=== PATIENT | female | born 1970 | race Caucasian/White ===

== ENCOUNTER → 2018-09-21 | Outpatient (CLI) | payer OTHER ==
--- NOTE | 2018-09-21 09:13 | Diagnostic Imaging Report ---
INDICATION: Palpable lump in the right breast. COMPARISON: 08/17/2016 and 11/21/2014. TECHNIQUE: 2D and 3D bilateral diagnostic mammography was performed with CAD. FINDINGS: Scattered fibroglandular densities are identified bilaterally. There is an area of increased density in the upper outer right breast at posterior depth. This is similar to perhaps slightly more prominent when compared to the prior mammograms. There are multiple circumscribed nodules in the upper outer right breast as well, consistent with intramammary lymph nodes. No suspicious calcifications are seen. There are benign calcifications. The axillae are unremarkable. IMPRESSION: Asymmetric density in the upper outer right breast, similar to perhaps slightly more increased when compared with the prior study. Further evaluation with ultrasound is recommended. ACR BI-RADS Category 0: Incomplete. (Needs additional imaging evaluation). Result letter will be mailed to the patient. Note: At least 10% of breast cancer is not imaged by mammography. Dictated by: Dictated on workstation # [id number]
--- NOTE | 2018-09-21 11:58 | Diagnostic Imaging Report ---
INDICATION: Palpable lump in the upper outer right breast. COMPARISON: Correlation is made with the diagnostic mammogram from earlier this same day. FINDINGS: Sonographic interrogation of the upper outer right breast was performed. There are two lymph nodes identified at the 10 o'clock location of the right breast 11 cm from the nipple. The largest measures approximately 7 mm in size. There are also two cysts present in the upper-outer right breast measuring approximately 7 mm and 5 mm. No other suspicious abnormality is seen. No abnormality is identified at the area of asymmetric density noted mammographically. IMPRESSION: Benign-appearing lymph nodes and simple cysts in the upper outer right breast. No concerning sonographic abnormality is seen. The patient may return to routine annual screening mammography. Continued close clinical and self breast exams are recommended to confirm stability of the area of palpable abnormality. ACR BI-RADS Category 2: Benign findings. Dictated by: Dictated on workstation # [id number]
== END ==
LOC: RAD 08:13
PROVIDERS: ATTEND Registered Nurse
DX: N60.01 Solitary cyst of right breast (principal); N63.11 Unspecified lump in the right breast, upper outer quadrant
CPT/HCPCS: 77066

== ENCOUNTER → 2018-10-31 | Outpatient (CLI) | payer OTHER ==
--- NOTE | 2018-10-31 16:33 | Diagnostic Imaging Report ---
PROCEDURE: CT abdomen and pelvis without contrast. TECHNIQUE: Multiple contiguous axial images were obtained through the abdomen and pelvis without the use of intravenous contrast. Auto Exposure Controls were utilized during the CT exam to meet ALARA standards for radiation dose reduction. INDICATION: Right abdominal pain. FINDINGS: Unenhanced images of the liver and spleen reveal no focal abnormality. Gallbladder is surgically absent. No pancreatic, adrenal gland or renal abnormality is seen. The appendix has a normal appearance. Note is made of an approximately 1.8 cm rounded hyperdense focus within the uterine fundus. There is also an approximately 1.8 cm cyst in the left ovary. No definite urinary tract calculus is identified. There is mild lumbar spondylosis with grade 1 anterolisthesis of L4 on L5. IMPRESSION: 1.8 cm hyperdense nodule in the region of fundal endometrial canal. This could represent hematoma, polyp or fibroid although ultrasonography would be useful for further characterization of this finding as well as probable 1.8 cm left ovarian cyst. Dictated by: Dictated on workstation # [id number]
== END ==
LOC: RAD 15:41
PROVIDERS: ATTEND Nurse Practitioner Family
DX: N85.8 Other specified noninflammatory disorders of uterus (principal); R10.9 Unspecified abdominal pain; Z90.49 Acquired absence of other specified parts of digestive tract
CPT/HCPCS: 74176

== ENCOUNTER → 2019-10-05 | Outpatient (REF) ==
--- NOTE | 2019-10-05 11:36 | Diagnostic Imaging Report ---
Left elbow at 11:55. Indication: Elbow pain. 3 views were obtained. There are no prior studies available for comparison. There is a linear lucency extending through the tip of the medial epicondyle of the distal humerus. There may be a similar-appearing linear lucency extending through the tip of the lateral epicondyle of the distal humerus. These linear lucencies do not have the appearance of an acute fracture and could be long-standing in nature. Previous studies are available. They would be helpful for comparison. No other fracture or acute abnormality is identified. The elbow joint is fairly well-maintained. The posterior fat-pad is not elevated and the soft tissues are unremarkable. Impression: 1. The linear lucencies extending longitudinally through the medial and lateral epicondyles may be a sequela of prior trauma as opposed to an acute injury. Clinical followup is recommended. 2. There is no acute bony abnormality noted otherwise. 3. If further imaging is desired, then MRI would be recommended. Dictated by: Dictated on workstation # [id number]
== END | disposition home or self-care (01) ==
LOC: OCC 10:37
PROVIDERS: ATTEND Family Medicine
CPT/HCPCS: 73080

== ENCOUNTER → 2020-04-03 | Outpatient (CLI) | payer OTHER | LOC: RAD 15:00 | PROVIDERS: ATTEND Obstetrics & Gynecology | DX: Z12.31 Encounter for screening mammogram for malignant neoplasm of breast (principal); Z53.9 Procedure and treatment not carried out, unspecified reason ==

== ENCOUNTER → 2021-03-05 | Outpatient (CLI) | payer OTHER ==
--- NOTE | 2021-03-05 16:00 | Diagnostic Imaging Report ---
PROCEDURE: Pelvic comp/transvaginal sonogram. TECHNIQUE: Complete transabdominal and transvaginal pelvic ultrasound was performed. In addition, limited pelvic Doppler was performed. INDICATION: Abdominal pain. Uterus is anteverted measuring 8.4 x 3.9 x 6.7 cm. There is an area area of heterogeneity in the anterior mid uterus measuring approximately 1.2 x 1.9 cm which may represent a fibroid. No other masses are seen. Endometrium is 4 mm in thickness. The ovaries were not visualized. No adnexal mass or free fluid is detected. IMPRESSION: Probable uterine fibroid. The study is otherwise unremarkable. Dictated by: Dictated on workstation # [id number]
== END ==
LOC: RAD 13:45
PROVIDERS: ATTEND Obstetrics & Gynecology
DX: R10.9 Unspecified abdominal pain (principal)
CPT/HCPCS: 76830; 76856

== ENCOUNTER 2021-04-08 05:35 | Outpatient (RCR) | payer BC, OTHER ==
[~2021-04-08] VITALS: Ht 162.6 cm; Wt 245.8 kg
[2021-04-10] MEDS ORDERED: CETI10TA17 PO (10:44)
[2021-04-10] MEDS ORDERED: GING250C PO (10:44)
[2021-04-10] MEDS ORDERED: CHOL100048 PO (10:44)
[2021-04-10] MEDS ORDERED: MULT-1060 PO (10:44)
[2021-04-10] MEDS ORDERED: GLUC100016 PO (10:44)
[2021-04-10] MEDS ORDERED: PANT40TA52 PO (10:47)
[2021-04-10] MEDS ORDERED: MELA1TAB15 PO (10:47)
[2021-04-10] MEDS ORDERED: VENL100T2 PO (10:47)
[2021-04-10] MEDS ORDERED: POTA99TA21 PO (10:47)
[2021-04-10] MEDS ORDERED: HYDR25TA4 PO (10:47)
== END 2021-04-10 12:45 | disposition home or self-care (01) ==
LOC: PREOP 05:35 → EDSTATUS 11:00 → PREOP 04-10 12:45
PROVIDERS: ATTEND Surgery
DX: Z01.818 Encounter for other preprocedural examination (principal)

== ENCOUNTER 2021-04-15 09:44 | Day surgery (SDC) | payer BC, OTHER ==
[~2021-04-15] VITALS: Ht 162.6 cm; Wt 111.5 kg
[2021-04-15 09:05] VITALS: BP 137/98
[~2021-04-15 09:44] MED LIST: CETI10TA17 PO; CHOL100048 PO; GING250C PO; GLUC100016 PO; HYDR25TA4 PO; MELA1TAB15 PO; MULT-1060 PO; PANT40TA52 PO; POTA99TA21 PO; VENL100T2 PO
[2021-04-15] MEDS ORDERED: LACTATED RINGERS 1,000 ML IV ONE (09:57)
[2021-04-15] MEDS ORDERED: LACTATED RINGERS 1,000 ML IV STA (10:02)
[2021-04-15] MEDS ORDERED: HURRICAINE EXT TUBE (BENZOCAINE) XX PRN (10:15)
--- NOTE | 2021-04-15 10:15 | Progress Note-Pre Operative ---
Pre-Operative Progress Note H&P Reviewed The H&P was reviewed, patient examined and no changes noted. Date Seen by Provider: Apr 15, 2021 Time Seen by Provider: 10:10 Date H&P Reviewed: Apr 15, 2021 Time H&P Reviewed: 10:10 Pre-Operative Diagnosis: lower abd pain, melena, change in bowel habits HAIM ALVARADO DO Apr 15, 2021 10:15
[2021-04-15] MEDS ORDERED: PROPOFOL INJECTION 50 ML IV ONE ×2 (14:18→14:51)
--- NOTE | 2021-04-15 15:03 | Progress Note-Post Operative ---
Post-Operative Progess Note Surgeon (s)/Boring And Filling Machine Operator (s) Surgeon HAIM ALVARADO DO Boring And Filling Machine Operator: NA Pre-Operative Diagnosis lower abd pain, melena, change in bowel habits Post-Operative Diagnosis Hiatal hernia, gastric polyps, colon polyps Procedure & Operative Findings Date of Procedure 04/15/21 Procedure Performed/Findings EGD with biopsies at the GE junction and antrum, colonoscopy with hot bx polypectomy x 2 Anesthesia Type per profile mill operator tape control Estimated Blood Loss Estimated blood loss (mL): none Specimens/Packing Specimens Removed antrum, ge, esophagus, colon polyps HAIM ALVARADO DO Apr 15, 2021 15:03
[2021-04-15 15:05] VITALS: BP 134/66
--- NOTE | 2021-04-15 15:05 | Anesthesia-General Post-Op ---
MAC Patient Condition Mental Status/LOC: Same as Preop Cardiovascular: Satisfactory Nausea/Vomiting: Absent Respiratory: Satisfactory Pain: Controlled Complications: Absent Post Op Complications Complications None Follow Up Care/Instructions Patient Instructions None needed. Anesthesiology Discharge Order Discharge Order Patient is doing well, no complaints, stable vital signs, no apparent adverse anesthesia problems. No complications reported per nursing. MARCO ANTONIO SHAFFER CRNA Apr 15, 2021 15:05
--- NOTE | 2021-04-15 15:05 | Discharge Inst-Simple/Standard ---
Discharge Inst-Standard Patient Instructions/Follow Up Plan of Care/Instructions/FU: 2 weeks Owen Activity as Tolerated: Yes Discharge Diet: Regular Diet (high fiber) HAIM ALVARADO DO Apr 15, 2021 15:05
[2021-04-15 15:10] VITALS: BP 134/66
[2021-04-15 15:30] VITALS: BP 136/76
[2021-04-15 15:50] VITALS: BP 136/76
--- NOTE | 2021-04-15 20:04 | OPERATIVE REPORT ---
DATE OF SERVICE: 04/15/2021 PREOPERATIVE DIAGNOSES: Lower abdominal pain, melena, and change in bowel habits. POSTOPERATIVE DIAGNOSES: Hiatal hernia, gastric polyps, and colon polyps. PROCEDURES PERFORMED: EGD with biopsy of the gastroesophageal junction, esophagus and antrum and colonoscopy with hot biopsy polypectomy x2. SURGEON: Haim Weaver DO. ANESTHESIA: Per OPERATING ROOM SPECIALIST. ESTIMATED BLOOD LOSS: None. COMPLICATIONS: None. INDICATIONS FOR PROCEDURE: The patient is a 51-year-old female needing colonoscopy and EGD for lower abdominal pain, melena, and change in bowel habits. She understands the risks and benefits of the procedure and wished to proceed with the procedure. Consent was signed in the chart. DESCRIPTION OF PROCEDURE: The patient was taken to the endoscopy suite and placed in a left lateral recumbent position. Timeout was performed. Scope was inserted in the mouth, down the esophagus, stomach and into the duodenum without difficulty. No polyps, masses or ulcerations within the duodenum. Scope was slowly retracted back into the stomach, where it was further insufflated. Some benign-appearing gastric polyps. Biopsy of the antrum was obtained. Scope was retroflexed noting a hiatal hernia and no other pathology. Scope was returned to its normal position. Biopsy of the antrum was obtained. Scope was slowly retracted back to the GE junction with some slight erythematous changes. Biopsy of the GE junction was obtained. No polyps, masses or ulcerations. Scope was slowly retracted back to the middle of the esophagus, where another biopsy was obtained just due to slight erythematous changes as well. Scope was then slowly retracted until completely removed. Digital rectal exam was performed. There were no palpable polyps, masses or ulcerations. Scope was inserted in the rectum and advanced all the way to cecum with minimal difficulty. Prep was adequate. Scope was then slowly retracted back. There were no polyps, masses or ulcerations within the cecum, ascending, transverse, and descending colon. In the sigmoid colon, a small polyp was present, which hot biopsy polypectomy was performed. Scope was then continuously retracted back into the rectum, where another small polyp was present, which hot biopsy polypectomy was performed. Scope was retroflexed noting no other pathology. Scope was returned to its normal position, slowly withdrawn until completely removed. The patient tolerated the procedure well without any complications. She was taken to the recovery room in stable condition. RECOMMENDATIONS: The patient to continue on current medications. Await biopsy results. The patient to increase fiber intake, which I think this will help with some of her change in bowel habits. The patient will follow up in a couple of weeks to see how she is doing at that time. The patient will have a repeat colonoscopy in five years. Job ID: [id number] DocumentID: [id number] Dictated Date: 04/15/2021 15:08:33 It Infrastructure Consultant Date: 04/15/2021 20:04:21 Dictated By: HAIM WEAVER DO
== END 2021-04-15 15:50 | disposition home or self-care (01) ==
LOC: ENDO 09:44
PROVIDERS: ATTEND Surgery
DX: D12.5 Benign neoplasm of sigmoid colon (principal); K62.1 Rectal polyp; K31.7 Polyp of stomach and duodenum; K44.9 Diaphragmatic hernia without obstruction or gangrene; I10 Essential (primary) hypertension; E66.01 Morbid (severe) obesity due to excess calories; K21.9 Gastro-esophageal reflux disease without esophagitis; G47.33 Obstructive sleep apnea (adult) (pediatric); Z99.89 Dependence on other enabling machines and devices; Z68.41 Body mass index [BMI] 40.0-44.9, adult; Z79.899 Other long term (current) drug therapy; Z90.49 Acquired absence of other specified parts of digestive tract
CPT/HCPCS: 84703; 88305

== ENCOUNTER → 2021-05-21 | Outpatient (CLI) | payer BC ==
[~2021-05-21] MED LIST changes: -POTA99TA21 PO; +POTA99TA26 PO
--- NOTE | 2021-05-21 11:34 | Diagnostic Imaging Report ---
INDICATION: Routine screening. COMPARISON: 09/21/2018 and 08/17/2016. TECHNIQUE: 2D and 3D bilateral screening mammography was performed with CAD. FINDINGS: Scattered fibroglandular densities are identified bilaterally. Benign-appearing nodules in the outer right breast appear stable. No new mass or malignant-appearing microcalcifications are seen. The axillae are unremarkable. IMPRESSION: No mammographic features suspicious for malignancy are identified. ACR BI-RADS Category 2: Benign findings. Result letter will be mailed to the patient. Note: At least 10% of breast cancer is not imaged by mammography. Dictated by: Dictated on workstation # [id number]
== END ==
LOC: RAD 10:45
PROVIDERS: ATTEND Obstetrics & Gynecology
DX: Z12.31 Encounter for screening mammogram for malignant neoplasm of breast (principal)
CPT/HCPCS: 77063; 77067

== ENCOUNTER 2021-05-27 05:42 | Outpatient (CLI) | payer BC ==
[~2021-05-27] VITALS: Ht 162.6 cm; Wt 111.4 kg
== END 2021-05-27 11:40 | disposition home or self-care (01) ==
LOC: PREOP 05:42
PROVIDERS: ATTEND Obstetrics & Gynecology
DX: Z01.818 Encounter for other preprocedural examination (principal)

== ENCOUNTER 2021-06-10 06:01 | Day surgery (SDC) | payer BC, OTHER ==
[2021-06-10] VITALS (13 sets, daily range): BP systolic 114–151; BP diastolic 61–77
[~2021-06-10] VITALS: Ht 162.6 cm; Wt 36.2 kg
[2021-06-10 06:25] LABS: BILIRUBIN,URINE NEGATIVE (NEGATIVE); CLARITY,URINE CLEAR; COLOR,URINE YELLOW; GLUCOSE, URINE (UA) NEGATIVE (NEGATIVE); KETONES,URINE NEGATIVE (NEGATIVE); LEUKOCYTE ESTERASE ,URINE NEGATIVE (NEGATIVE); NITRITE,URINE NEGATIVE (NEGATIVE); PROTEIN,URINE NEGATIVE (NEGATIVE)
[2021-06-10] MEDS ORDERED: ceFAZolin 2 GM IV Premixed 50 ML IV NR (06:30)
[2021-06-10] MEDS: LACTATED RINGERS 1,000 ML IV PRN ×2 (06:38→08:10)
[2021-06-10 06:59] LABS: BASOPHILS # (AUTO) 0.1 10^3/uL (0.0-0.1); BASOPHILS % (AUTO) 1 % (0-10); EOSINOPHILS # (AUTO) 0.1 10^3/uL (0.0-0.3); EOSINOPHILS % (AUTO) 2 % (0-10); HEMATOCRIT 42 % (35-52); HEMOGLOBIN 13.6 g/dL (11.5-16.0); LYMPHOCYTES % (AUTO) 28 % (12-44); MEAN CORPUSCULAR HEMOGLOBIN 29 pg (25-34); MEAN CORPUSCULAR HGB CONC 33 g/dL (32-36); MEAN CORPUSCULAR VOLUME 89 fL (80-99); MEAN PLATELET VOLUME 8.7 fL (9.0-12.2); MONOCYTES # (AUTO) 0.6 10^3/uL (0.0-1.0); MONOCYTES % (AUTO) 8 % (0-12); NEUTROPHILS # (AUTO) 4.4 10^3/uL (1.8-7.8); NEUTROPHILS % (AUTO) 61 % (42-75); PLATELET COUNT 374 10^3/uL (130-400); WHITE BLOOD COUNT 7.3 10^3/uL (4.3-11.0)
[2021-06-10] MEDS ORDERED: LIDOCAINE/EPI 1%-1:200,000 (XYLOCAINE) 30 ML VIAL ONE (07:01)
[2021-06-10] MEDS ORDERED: VASOPRESSIN INJECTION 20 UNIT/ML VIAL ONE (07:01)
[2021-06-10] MEDS ORDERED: NS (IVPB) 100 ML ONE (07:01)
[2021-06-10] MEDS ORDERED: ESTRADIOL VAGINAL CREAM 42.5 GM (ESTRACE) VG ONE (07:01)
[2021-06-10] MEDS ORDERED: ONDANSETRON 4 MG/2 ML (SDV) Z0FRAN ONE (07:03)
[2021-06-10] MEDS ORDERED: MIDAZOLAM 2 MG/2 ML (VERSED) VIAL ONE (07:03)
[2021-06-10] MEDS ORDERED: proPOfol 200 MG/20 ML (DIPRIVAN) VIAL IV ONE (07:03)
[2021-06-10] MEDS ORDERED: NEOSTIGMINE 3 MG/3 ML VIAL ONE (07:03)
[2021-06-10] MEDS ORDERED: ROCURONIUM 10 MG/ML 5 ML SYRINGE IV ONE ×2 (07:03→10:03)
[2021-06-10] MEDS ORDERED: LIDOCAINE PF 2% 5 ML (XYLOCAINE) VIAL ONE (07:03)
[2021-06-10] MEDS ORDERED: GLYCOPYRROLATE 0.2 MG/ML (ROBINUL) 2 ML VIAL ONE (07:03)
[2021-06-10] MEDS ORDERED: fentaNYL INJ 100 MCG/2 ML AMP ONE (07:03)
[2021-06-10 07:24] LABS: BACTERIA,URINE TRACE /HPF; WBC,URINE RARE /HPF
--- NOTE | 2021-06-10 10:11 | Operative Report ---
Operative Report Date of Procedure/Surgery Jun 10, 2021 Surgeon (s) KINJAL CALLAWAY DO Manufacturing Development Engineer (s): Malcolm Caceres, MS III Post-Operative Diagnosis uterovaginal prolapse, rectocele, uterine fibroids vaginal wall cyst Procedure Performed RaTH, bilateral salpingectomy, excision of vaginal wall cyst posterior colporrhaphy Description of Procedure Anesthesia Type: General Estimated blood loss (mL): minimal Specimen(s) collected/removed uterus, bilateral tubes and vaginal cyst Description of the Procedure After informed consent was obtained, patient was taken into the operating room where general anesthetic was found to be adequate. She was prepped and draped in the usual sterile fashion in the dorsal lithotomy position. A Enriquez catheter was placed. A speculum was placed in the vagina. The cervix was visualized and the anterior lip was grasped with a sharp toothed tenaculum. The uterus was sounded to a depth was approximately 8 centimeters. I placed the Nata device (8 cm) and a 3.0 cm collar was advanced over the cervix. I inserted the Nata without difficulty, inflating the balloon and securing it around the fornix of the cervix. The collar was then secured with sutures at 12 o'clock. Attention was then turned to the patient's abdomen. The skin was injected with 0.1% lidocaine with epinephrine. A supraumbilical incision was made about 8 mm in length. A Veress needle was inserted and I confirmed intraabdominal placement with a drop in pressure and the saline drop test. The opening pressure was 6 mmHg. I then insufflated the abdomen to a maximum of 15 mmHg with warmed CO2 gas. I placed an additional 8 mm trocar in the left abdomen lateral to the umbilicus approximately 15 cm lateral. The second and third robotic port was placed about 12 cm lateral to the right and left of the umbilical placement. 0.1% lidocaine with epinephrine was injected prior to placement of all trocars. These were 8 mm trocars. These were placed under direct visualization of the laparoscope. When all placements were confirmed, the patient was placed in steep Trendelenburg allowing adequate visualization. The robot was brought in for docking. The docking was accomplished without difficulty. I then took over the command of the robot utilizing the synchroseal and monopolar elmer. I visualized the round ligaments bilaterally and grasped them and cauterized with bipolar cautery and then cut with my elmer. At this point, I then did bilateral salpingectomy. I incised the mesosalpinx with the elmer. I then grasped the uterine ovarian ligaments bilaterally with the synchroseal and then excised with the monopolar elmer. I then moved my dissection to the posterior leaves of the broad ligament. I dissected the posterior leaves of the broad ligament off the uterine arteries skeletonizing them bilaterally. I then took a second clamp with the synchroseal and with the elmer, transected the vessels away from the lateral aspect to the cervical stroma. I dissected the anterior peritoneum off the lower uterine segment. I continually pushed the bladder back and I took excessively great care and I was eventually able to dissect the vesicouterine peritoneum off the lower uterine segment. I then dissected in a V fashion towards the midline between the uterosacral ligaments. This allowed me to skeletonize the uterine vessels bilaterally. The balloon on the NATA was insufflated. This allowed me to see the NATA circumferentially. I then performed a colpotomy anteriorly and then amputate with cervix away from the vaginal fornix. I then continued the colpotomy circumferentially. Once this was performed, the tax assistant removed the uterus through the vagina. At this point, I could visualize the vaginal cyst at the upper right vagina. It was just at the cervicovaginal junction. I then excised the vaginal wall cyst with the laparoscopic elmer. The tax assistant then left a sponge in the vagina to maintain the pneumoperitoneum. . I then began closure of the vaginal cuff. I closed the apices of the vaginal cuff with 2-0 Vicryl V lock sutures with a colposuspension through the uterosacral ligaments. This suspended the apices of the vaginal cuff. I extended this to the midline from both sides and overlapped the V lock sutures in the midline. Excellent closure is noted and hemostasis is achieved. All the needles were removed from the patient's abdomen. Now, the robotic instruments were removed and the robot was docked back to lap aroscopy. The pelvis was irrigated. There was no active bleeding noted. Bilateral ureters were seen the entire time during the surgery and were peristalsing. There was no excessive bleeding noted. The trocars were removed under direct visualization. The laparoscopic sites were visualized and found to be hemostatic. The skin incisions were closed with 4-0 Monocryl in a subcuticular fashion and then with Skin Affix. Op sites were placed over the incision sites. The instruments were removed from the vagina and I noted there were no abrasions. Attention was now turned to the vagina. The perineum was grasped on either side of the midline with Janine clamps. I then injected the posterior vaginal epithelium with dilute vasopressin. The vaginal epithelium was then dissected off the posterior pubovaginal fascia and the vaginal epithelium was incised in the midline. I then plicated the posterior vaginal fascia in the midline with interrupted stitches of 2-0 Vicryl. I then excised the excess vaginal e pithelium. I closed the incision with 2-0 Vicryl in a running fashion. I then did a perineorrhaphy by making a pyramidal incision in the perineum and then repairing this is standard fashion with 2-0 Vicryl. Vaginal epithelium was then placed in the vagina and the vagina was packed with vaginal packing. Sponge, lap, needle and instrument counts correct times two. Patient was aw akened and taken to recovery in a stable condition Findings of the Procedure 3-4+ rectocele, 2+ uterine prolapse uterine fibroids 3 cm vagina wall cyst Allergies and Home Medications Allergies Coded Allergies: Penicillins (Unverified Allergy, Unknown, 06/10/21) Patient Home Medication List Home Medication List Reviewed: Yes Acetaminophen (Acetaminophen) 500 Mg Tablet, 1,000 MG PO Q8HR Prescribed by: KINJAL CALLAWAY on 06/11/21 0809 Cetirizine HCl (Cetirizine HCl) 10 Mg Tablet, 10 MG PO DAILY, (Reported) Entered as Reported by: LISA FELIPE on 04/10/21 104 Last Action: Reviewed Cholecalciferol (Vitamin D3) (Vitamin D3) 25 Mcg Capsule, 25 MCG PO DAILY, (Reported) Entered as Reported by: LISA FELIPE on 04/10/21 104 Last Action: Reviewed Docusate Sodium (Docusate Sodium) 100 Mg Capsule, 100 MG PO BID Prescribed by: KINJAL CALLAWAY on 06/11/21 0809 Coretta Root (Coretta) 250 Mg Capsule, 250 MG PO DAILY, (Reported) Entered as Reported by: LISA FELIPE on 04/10/21 104 Last Action: Reviewed Glucosamine Sulfate 2Kcl (Glucosamine) 1,000 Mg Tablet, 1,000 MG PO DAILY, ( Reported) Entered as Reported by: LISA FELIPE on 04/10/211043 Last Action: Reviewed Hydrochlorothiazide (Hydrochlorothiazide) 25 Mg Tablet, 25 MG PO DAILY, (Reported) Entered as Reported by: LISA FELIPE on 04/10/211046 Last Action: Reviewed Melatonin/Pyridoxine (Melatonin 5 mg Tablet) 1 Each Tablet, 1 EACH PO HS, (Reported) Entered as Reported by: LISA FELIPE on 04/10/211046 Last Action: Reviewed Multivitamin/Iron/Folic Acid (Centrum Women Tablet) 1 Each Tablet, 1 EACH PO DAILY, (Reported) Entered as Reported by: LISA FELIPE on 04/10/211043 Last Action: Reviewed Oxycodone Hcl (Oxyir Tablet) 5 Mg Tab, 5 MG PO PRN PRN for PAIN-SEE DOSE INSTRUCTIONS Prescribed by: KINJAL CALLAWAY on 06/11/21 0810 Pantoprazole Sodium (Pantoprazole Sodium) 40 Mg Tablet.dr, 40 MG PO DAILY, (Reported) Entered as Reported by: LISA FELIPE on 04/10/211046 Last Action: Reviewed Potassium Gluconate (Potassium) 99 Mg Tablet, 99 MG PO DAILY, (Reported) Entered as Reported by: LISA FELIPE on 04/10/211046 Last Action: Reviewed Venlafaxine HCl (Venlafaxine HCl) 100 Mg Tablet, 100 MG PO DAILY, (Reported) Entered as Reported by: LISA FELIPE on 04/10/211046 Last Action: Reviewed KINJAL CALLAWAY DO Jun 10, 2021 10:11
[2021-06-10] MEDS ORDERED: ONDANSETRON 4 MG (ZOFRAN) ORAL DISSOLVE TAB PO PRN (10:15)
[2021-06-10] MEDS ORDERED: CHLORASEPTIC LOZENGE MM PRN (10:15)
[2021-06-10] MEDS ORDERED: NALOXONE 0.4 MG/ML 1 ML (NARCAN) VIAL IV PRN ×2 (10:15)
[2021-06-10] MEDS ORDERED: morphine INJ 4 MG/ML 1 ML (VIAL/SYRINGE) IV PRN (10:15)
[2021-06-10] MEDS ORDERED: KETOROLAC 30 MG/ML VIAL ONE (10:25)
[2021-06-10] MEDS ORDERED: SEVOFLURANE (ULTANE) 15 ML INHAL SOLN ONE (10:25)
[2021-06-10] MEDS ORDERED: morphine INJ 10 MG/ML 1ML (SYR OR VIAL) IVP ONE (10:30)
[2021-06-10] MEDS ORDERED: HYDROmorphone 2 MG/ML VIAL (DILAUDID) IV ONE (10:30)
[2021-06-10] MEDS: KETOROLAC 30 MG/ML VIAL IV SCH ×3 (10:31→22:07)
[2021-06-10] MEDS ORDERED: PATIENT MAY USE OWN MEDS, ALL MC SCH (10:45)
[2021-06-10] MEDS: ONDANSETRON 4 MG/2 ML (SDV) Z0FRAN IVP PRN ×2 (11:32→13:32)
[2021-06-10] MEDS: LACTATED RINGERS 1,000 ML IV SCH ×2 (11:58→20:03)
[2021-06-10] MEDS: ACETAMINOPHEN 500 MG TAB (TYLENOL) PO SCH ×2 (13:32→21:32)
--- NOTE | 2021-06-10 17:33 | Anesthesia-General Post-Op ---
General Patient Condition Mental Status/LOC: Same as Preop Cardiovascular: Satisfactory Nausea/Vomiting: Absent Respiratory: Satisfactory Pain: Controlled Complications: Absent Post Op Complications Complications None Follow Up Care/Instructions Patient Instructions None needed. Anesthesia/Patient Condition Patient Condition Patient was seen this morning at the end of her PACU stay and she was doing well, no complaints, stable vital signs, no apparent adverse anesthesia problems. MARLON ROCHA DO Jun 10, 2021 17:32
[2021-06-10] MEDS ORDERED: traZODone 50 MG (DESYREL) TAB PO SCH (21:00)
[2021-06-11 00:50] VITALS: BP 143/64
[2021-06-11] MEDS: KETOROLAC 30 MG/ML VIAL IV SCH ×2 (03:14→09:04)
[2021-06-11] MEDS: LACTATED RINGERS 1,000 ML IV SCH (03:18)
[2021-06-11] MEDS: ACETAMINOPHEN 500 MG TAB (TYLENOL) PO SCH (06:42)
--- NOTE | 2021-06-11 07:55 | Progress Note ---
RYAN RONQUILLO 06/11/21 0755: Subjective Date Seen by a Provider: Jun 11, 2021 Time Seen by a Provider: 07:40 Subjective/Events-last exam 51yo F day 1 post op hysterectomy, vaginal cystectomy, and posterior colporrhaphy due to uterine fibroids, vaginal cyst, and rectocele. Pt laying comfortably in bed and using cpap machine. Reports being sore in the lower abdomen area. Otherwise eating/drinking and passing gas. Able to ambulate. Folley cath and vaginal packing removed this morning. Denies any fever, chills, vomiting, or diarrhea. Objective Exam Last Set of Vital Signs Vital Signs Date Time Temp Pulse Resp B/P (MAP) Pulse Ox O2 Delivery O2 Flow Rate FiO2 06/11/21 00:50 36.4 69 18 143/64 (90) 96 Room Air 06/10/21 11:00 4 Capillary Refill : Less Than 3 Seconds I&O Intake and Output 06/11/21 00:00 Intake Total 2950 ml Output Total 1950 ml Balance 1000 ml IV Total 2950 ml Output Urine Total 1950 ml General: Alert, Oriented X3, Cooperative HEENT: EOMI Neck: Supple Lungs: Clear to Auscultation Heart: Regular Rate Abdomen: Soft Extremities: No Cyanosis Skin: No Rashes, No Significant Lesion Neuro: Normal Speech Psych/Mental Status: Mental Status NL Assessment/Plan Assessment/Plan Assess & Plan/Chief Complaint Uterine Fibroids Rectocele Vaginal Cyst 06/11/2020: Continue to ambulate Regular diet Continue to use incentive spirometer Discharge today KINJAL CALLAWAY DO 06/11/21 0824: Subjective Subjective/Events-last exam I have seen and examined the patient with the student and agree with assessment. Assessment/Plan Assessment/Plan Assess & Plan/Chief Complaint DC today with follow up in 1 week for incision check and 8-10 weeks for post operative exam Supervisory-Addendum Brief Verification & Attestation Participated in pt care: history, physical Personally performed: exam Care discussed with: Medical Student Procedures: n/a See above RYAN RONQUILLO Jun 11, 2021 07:55 KINJAL CALLAWAY DO Jun 11, 2021 08:24
[2021-06-11] MEDS ORDERED: IBUP-844 PO (08:09)
[2021-06-11] MEDS ORDERED: ACET-93 PO (08:09)
[2021-06-11] MEDS ORDERED: OXC5T PO (08:09)
[2021-06-11] MEDS ORDERED: DOCU100C37 PO (08:09)
--- NOTE | 2021-06-11 08:11 | Discharge Inst-Women's Service ---
Discharge Inst-Women's Serv Depart Medication/Instructions New, Converted or Re-Newed RX: Transmitted to Pharmacy Final Diagnosis uterine fibroid rectocele incomplete uterovaginal prolapse enteropelvic adhesions Problems Reviewed?: Yes Consults/Follow Up Additional Follow Up: Yes (1 week with Claudia; 8-10 weeks with Williams) Activity Activity: Activity as Tolerated Driving Instructions: No Driving for 1 Week NO SMOKING: NO SMOKING Nothing Inside Vagina: No Douching, No Gerlach (until cleared by physician), No Tampons Diet Discharge Diet: No Restrictions Symptoms to Report to : Swelling Increased, Bleeding Excessive, Pain Increased, Fever Over 101 Degrees F, Vaginal Bleeding Increase, Cramps in Feet or Legs, Vaginal Discharge Foul For Any Problems or Questions: Contact Your Physician Skin/Wound Care Infection Signs and Symptoms: Increased Redness, Foul Odor of Wound, Increased Drainage, Skin Itchy or Has a Rash, Increased Swelling, Temperature Above 101 F Operative Area Clean and Dry: You May Remove Bandage (ini 3 days or if soiled or wet) Stitches/Carol/Dermabond: Dermabond Bathing Instructions: KINJAL Erickson DO Jun 11, 2021 08:11
[2021-06-11] MEDS ORDERED: DOCUSATE SODIUM 100 MG (COLACE) CAP PO SCH (09:00)
[2021-06-11 09:02] VITALS: BP 120/59
[2021-06-11] MEDS ORDERED: IBUPROFEN 600 MG (MOTRIN) TAB PO SCH (12:00)
== END 2021-06-11 10:25 | disposition home or self-care (01) ==
LOC: SDC 06:01 → WS 10:16 → SDC 06-11 10:25
PROVIDERS: ATTEND Obstetrics & Gynecology
DX: D25.1 Intramural leiomyoma of uterus (principal); D25.0 Submucous leiomyoma of uterus; D25.2 Subserosal leiomyoma of uterus; D28.1 Benign neoplasm of vagina; N81.2 Incomplete uterovaginal prolapse; N89.8 Other specified noninflammatory disorders of vagina; N83.8 Other noninflammatory disorders of ovary, fallopian tube and broad ligament; I10 Essential (primary) hypertension; G47.33 Obstructive sleep apnea (adult) (pediatric); F32.A Depression, unspecified; K21.9 Gastro-esophageal reflux disease without esophagitis; E11.01 Type 2 diabetes mellitus with hyperosmolarity with coma; Z68.41 Body mass index [BMI] 40.0-44.9, adult; Z79.899 Other long term (current) drug therapy; Z79.2 Long term (current) use of antibiotics
CPT/HCPCS: 36415; 81000; 84703; 85025; 86850; 86900; 86901; 87081; 88305; 88307

== ENCOUNTER → 2022-05-22 | Outpatient (CLI) | payer OTHER ==
[~2022-05-22] MED LIST changes: +ACET-93 PO; +DOCU100C37 PO; +IBUP-844 PO; +OXC5T PO
--- NOTE | 2022-05-26 13:58 | Diagnostic Imaging Report ---
INDICATION: Routine screening. Correlation is made prior mammogram of 05/21/2021 and 09/21/2018. 2-D and 3-D bilateral screening mammography was performed with CAD. Scattered fibroglandular densities are identified bilaterally. Benign circumscribed nodules in the outer right breast are stable. No spiculated mass or malignant-appearing microcalcifications are seen. Axillae are unremarkable. IMPRESSION: No mammographic features suspicious for malignancy are identified. ACR BI-RADS Category 2: Benign findings. Result letter will be mailed to the patient. Note: At least 10% of breast cancer is not imaged by mammography. BI-RADS Category 2 Dictated by: Dictated on workstation # [id number]
== END ==
LOC: RAD 15:16
PROVIDERS: ATTEND Surgery
DX: Z12.31 Encounter for screening mammogram for malignant neoplasm of breast (principal)
CPT/HCPCS: 77063; 77067